=== PATIENT | male | born 1980 | race Caucasian/White ===

== ENCOUNTER → 2017-12-31 14:45 | Outpatient (CLI) | payer MEDICAID, SELFPAY ==
--- NOTE | 2017-12-31 15:30 | RAD_ITS ---
STUDY: X-RAY CHEST REASON FOR EXAM: Male, 37 years old. Chest pain TECHNIQUE: Frontal and lateral views of the chest COMPARISON: None. FINDINGS: The lungs are clear. There are no pleural effusions. There is no pneumothorax. The heart is normal in size. The visualized osseous structures are within normal limits. RAD/Chest PA and Lateral IMPRESSION: No acute thoracic pathology. Electronically Signed: Tao Leiva, at 16:08 EDT Tel , Service support ,
[2017-12-31 16:04] LABS: Absolute Lymphocyte Count 0.88 X10^3/ul (0.83-4.51); Absolute Neutrophil Count 1.5 X10^3/uL (2.0-7.7); Basophil# 0.01 X10^3/uL; Basophil% 0.4 % (0-1); Eosinophil# 0.31 X10^3/uL; Eosinophils% 11.2 % (0-5); Hematocrit 36.8 % (40-54); Hemoglobin 11.6 g/dl (13.0-16.5); Lymphocyte # 0.88 X10^3/ul (4.0); Lymphocyte % 31.9 % (19-41); Mean Corp Hgb Conc 31.5 g/gl (32-36); Mean Corpuscular Volume 88.7 fL (80-94); Mean Platelet Vol. 10.7 fl (6.2-12.0); Monocyte# 0.09 X10^3/uL; Monocyte% 3.3 % (0-10); Neutrophil # 1.47 X10^3/uL (2.7-7.7); Neutrophil % 53.2 % (47-70); Platelet Count 158 K/mm3 (150-450); RBC Distribution Width CV 13.1 % (11.6-14.6); Red Blood Count 4.15 M/mm3 (4.6-6.2); White Blood Count 2.8 K/mm3 (4.4-11.0)
[2017-12-31 16:06] LABS: POSITIVE COUNT NO; POSITIVE DIFFERENTIAL NO; POSITIVE MORPHOLOGY NO
[2017-12-31 16:43] LABS: ALB/GLOB Ratio 0.8 RATIO (0.9-2.4); AST(SGOT) 14 U/L (15-37); Alanine Aminotransfer ALT/SGPT 20 U/L (16-61); Alkaline Phosphatase 111 U/L (45-117); Anion Gap 6 (5-15); BUN 17 mg/dL (7-18); BUN/Creat Ratio 17.4 RATIO (10-20); Calcium,Total 9.2 mg/dL (8.5-10.1); Chloride 104 mmol/L (98-107); Creatinine, Serum 0.98 mg/dL (0.70-1.30); EST Glomerular Filtration Rate 92 mL/min (>60); Est Glom Filt Rate - Afr Amer 111 mL/min (>60); Globulin 4.9 g/dL (2.2-4.2); Glucose 88 mg/dL (74-106); Potassium 4.2 mmol/L (3.5-5.1); Protein, Total 8.9 g/dL (6.4-8.2); Sodium Level 140 mmol/L (136-145)
[2018-01-03 13:18] LABS: Toxoplasma Gondii IgM < 3.0 AU/mL (0.0-7.9)
[2018-01-03 20:08] LABS: Absolute CD4 Helper 54 /uL (359-1519); Basophils (Absolute) 0 x10E3/uL (0.0-0.2); Eosinophils 11 % (Not Estab.); Eosinophils (Absolute) 0.3 x10E3/uL (0.0-0.4); HCV Quant. RNA PCR HCV Not Detected IU/mL (.); HEPATITIS B SURFACE AG Negative (Negative); Hematocrit 36.8 % (37.5-51.0); Hemoglobin 11.6 g/dL (13.0-17.7); Hepatitis A IgM Antibody Negative (Negative); Hepatitis B Core AB IgM Negative (Negative); Immature Granulocytes 0 % (Not Estab.); Immature Granulocytes Absolute 0 x10E3/uL (0.0-0.1); Lymphs 24 % (Not Estab.); Lymphs (Absolute) 0.7 x10E3/uL (0.7-3.1); MCH 28.5 pg (26.6-33.0); MCHC 31.5 g/dL (31.5-35.7); MCV 90 fL (79-97); Monocytes 11 % (Not Estab.); Monocytes (Absolute) 0.3 x10E3/uL (0.1-0.9); Neutrophils 53 % (Not Estab.); Neutrophils (Absolute) 1.6 x10E3/uL (1.4-7.0); Percent % CD4 Pos. Lymph. 7.7 % (30.8-58.5); Platelets 187 x10E3/uL (150-379); RBC Count 4.07 x10E6/uL (4.14-5.80); RDW 13.4 % (12.3-15.4)
[2018-01-04 08:42] LABS: CMV Antibody IgG > 10.00 U/mL (0.00-0.59); Hep C Antibodies <0.1 s/co ratio (0.0-0.9); Toxoplasma Gondii IgG < 3.0 IU/mL (0.0-7.1)
[2018-01-07 05:43] LABS: Rapid Plasmin Reagin (RPR) NONREACTIVE (NONREACTIVE)
== END ==
PROVIDERS: Referring Provider Family Medicine; Visit Provider Family Medicine
DX: B20 Human immunodeficiency virus [HIV] disease (principal)
CPT/HCPCS: 71046; 80053; 80074; 85025; 86361; 86592; 86644; 86777; 86778; 87522

== ENCOUNTER → 2018-03-07 16:02 | Outpatient (CLI) | payer MEDICAID, SELFPAY ==
[2018-03-09 14:01] LABS: Absolute CD4 Helper 277 /uL (359-1519); Basophils (Absolute) 0 x10E3/uL (0.0-0.2); Eosinophils 7 % (Not Estab.); Eosinophils (Absolute) 0.5 x10E3/uL (0.0-0.4); Hematocrit 35.7 % (37.5-51.0); Hemoglobin 11.2 g/dL (13.0-17.7); Immature Granulocytes 0 % (Not Estab.); Lymphs 40 % (Not Estab.); Lymphs (Absolute) 2.8 x10E3/uL (0.7-3.1); MCH 28.8 pg (26.6-33.0); MCHC 31.4 g/dL (31.5-35.7); MCV 92 fL (79-97); Monocytes 9 % (Not Estab.); Monocytes (Absolute) 0.6 x10E3/uL (0.1-0.9); Neutrophils 44 % (Not Estab.); Percent % CD4 Pos. Lymph. 9.9 % (30.8-58.5); Platelets 298 x10E3/uL (150-379); RBC Count 3.89 x10E6/uL (4.14-5.80); RDW 16.4 % (12.3-15.4); WBC Count 6.9 x10E3/uL (3.4-10.8)
[2018-03-09 15:37] LABS: Immature Granulocytes Absolute 0 x10E3/uL (0.0-0.1)
[2018-03-11 12:40] LABS: HIV-1 RNA by PCR, Quant. 140 copies/mL (.); LOG10 HIV-1 RNA 2.146 (.)
--- OUTSIDE RECORDS SUMMARY | 2018-04-24 01:01 | XMS RPT_ITS ---
:1980 Author Organization [facility] Care Team Providers Name Role Phone PROVIDER, UNKNOWN Admitting Unavailable PROVIDER, UNKNOWN Attending Unavailable KYUNG SIEGEL Primary Care Unavailable PROVIDER, UNKNOWN Admitting Unavailable PROVIDER, UNKNOWN Attending Unavailable PATIENT, SELF Referring Unavailable YAMAHSATURNINO, ATSUKO Primary Care Unavailable PROVIDER, UNKNOWN Admitting Unavailable PROVIDER, UNKNOWN Attending Unavailable CHIQUITA, ATSUKO Referring Unavailable YAMAHSATURNINO, ATSUKO Primary Care Unavailable NIRANJAN MAHAJAN Attending Unavailable NIRANJAN MAHAJAN Referring Unavailable CLINIC, [facility] Primary Care Unavailable Tiffanie Toro Attending Unavailable Tiffanie Toro Referring Unavailable CLINIC, [facility] Primary Care Unavailable PROBLEMS PROBLEMS DATE TYPE CONDITION / CODE ATTENDING STATUS SOURCE 01/27/2018 Unknown B20 - Human [place], Active Helen immunodeficiency virus [facility] [HIV] disease / Hospital B20(ICD-10) Repository PROCEDURES PROCEDURES DATE CODE DESCRIPTION STATUS SOURCE 04/13/2018 AP111(C4) SPECIMEN [facility] DERM [facility] 04/13/2018 77651(C4) PUNCH BIOPSY SKIN [facility] 03/25/2018 08479(C4) GC/CHLAMYDIA [facility] 03/25/2018 56455(C4) GC/CHLAMYDIA [facility] 03/25/2018 26318(C4) GC/CHLAMYDIA Completed [facility] AMPLIFICATION System Repository 03/25/2018 86729(C4) INFLUENZA, INJECTABLE, Completed [facility] QUADRIVALENT, System Repository PRESERVATIVE FREE, 6+ MONTHS OR OLDER, 0.5 ML 03/25/2018 AYQ697(C4) DERMATOLOGY SERVICE Completed [facility] REQUEST System Repository 03/25/2018 WEN658(C4) ONCOLOGY MED SERVICE Completed [facility] REQUEST System Repository 03/25/2018 AP117(C4) CYTOLOGY GI Completed [facility] Repository 03/15/2018 JWD150(C4) INFECTIOUS DISEASE Completed [facility] SERVICE REQUEST System Repository RESULTS RESULTS Observed: 03/25/2018 Status: F Source: THE GC/CHLAMYDIA 3:29 PM [facility] AMPLIFICATION REPOSITORY GC AMPLIFICATION: Negative CHLAMYDIA AMPLIFICATION: Negative Performed By: #### GCA #### [facility] [address] [place], [place] [address] Observed: 03/25/2018 Status: F Source: THE GC/CHLAMYDIA 3:29 PM [facility] AMPLIFICATION REPOSITORY GC AMPLIFICATION: Negative CHLAMYDIA AMPLIFICATION: Negative Performed By: #### GCA #### [facility] [address] [place], [place] CD4, T LYMPH HELPER Collected: 03/07/2018 Status: F Source: HELEN COUNT 4:07 PM [facility] REPOSITORY TYPE CODE TESTS RESULT OUT OF REFERENCE UNITS RANGE LAB L3890.0800 3.4-10.8 x10E3/uL WBC Normal Count 6.9 LAB L3890.0900 4.14-5.80 x10E6/uL Low RBC Count 3.89 LAB L3890.1000 13.0-17.7 g/dL Low Hemoglobin 11.2 LAB L3890.1100 37.5-51.0 % Low Hematocrit 35.7 LAB L3890.1200 79-97 fL MCV 92 Normal LAB L3890.1300 26.6-33.0 pg MCH Normal 28.8 LAB L3890.1400 31.5-35.7 g/dL Low MCHC 31.4 LAB L3890.1450 12.3-15.4 % RDW High 16.4 LAB L3890.1500 150-379 x10E3/uL Normal Platelets 298 LAB L3890.1600 Not Estab. % 44 Normal Neutrophils LAB L3890.1700 Not Estab. % Lymphs 40 Normal LAB L3890.1800 Not Estab. % 9 Normal Monocytes LAB L3890.1900 Not Estab. % 7 Normal Eosinophils LAB L3890.2000 Not Estab. % 0 Normal Basophils LAB L3890.2100 1.4-7.0 x10E3/uL Neutr Normal Absolute 3.0 LAB L3890.2200 0.7-3.1 x10E3/uL Lymphs Normal Absolute 2.8 LAB L3890.2300 0.1-0.9 x10E3/uL Monos Normal Absolute 0.6 LAB L3890.2400 0.0-0.4 x10E3/uL Eos High Absolute 0.5 LAB L3890.2500 0.0-0.2 x10E3/uL Basos 0 Normal Absolute LAB L3890.2505 . Immature Normal CellS Test not performed LAB L3890.2510 Not Estab. % Immature 0 Normal Grans LAB L3890.2515 0.0-0.1 x10E3/uL Imm 0 Normal Grans Abs Result Comment: Performed at: [place] [id number] Hunting Sales Leader: Grayson Barboza PhD, Phone: [phone] LAB L3890.9126 . Normal Test not NRBC Count performed LAB L3890.2525 . Normal Test not HEME COMMENT performed LAB L3890.2530 359-1519 /uL Low 277 ABS CD4 HELPER LAB L3890.2575 30.8-58. % Low 5 % 9.9 CD4 POS.LYMPH Performed By: #### L3890.0200 #### [facility] (refer to report for specific site) refer to report for address and phone number HIV VIRAL LOAD Collected: 03/07/2018 Status: F Source: HELEN QUANT 4:07 PM [facility] REPOSITORY TYPE CODE TESTS RESULT OUT OF RANGE REFERENCE UNITS LAB L3890.4100 . copies/mL Normal HIV-1 140 RNA,QUANT Result Comment: The reportable range for this assay is 20 to 10,000,000 copies HIV-1 RNA/mL. LAB L3890.4200 . Normal log10 HIV-1 2.146 RNA Result Comment: Result Units: [id number]/mL Performed at: [place], [place] [id number] Hunting Sales Leader: Viviana Montero MD, Phone: [phone] Performed By: #### L3890.4000 #### [facility] (refer to report for specific site) refer to report for address and phone number CD4 ABSOLUTE COUNT Collected: 02/15/2018 Status: F Source: TAMPA 9:54 AM CLINIC REFERENCE REPOSITORY TYPE CODE TESTS RESULT OUT OF REFERENCE UNITS RANGE LAB XCD3P(LOINC 60-89 % ) CD3+ T Cell % 72 LAB XCD3N(LOINC 958-2388 Cells/uL ) CD3+ T Cell 1620 No. LAB XCD4P(LOINC 34-61 % ) Low CD4+CD3+ T 12 Cell % LAB XCD4N(LOINC 533-1674 Cells/uL ) Low CD4+CD3+ T 271 Cell No. LAB XCOMNT(LOIN C) CD4 Comment Result Comment: Clinical interpretation of lymphocyte subsets must be made with caution. The following number of cluster designated antibodies were used for the definition of the above reported populations: CD3 and CD4. (CD45 used for gating.) This test was developed and its performance characteristics determined by [facility] ([facility]). It has not been cleared or approved by the FDA. [facility] is regulated under CLIA as qualified to perform high-complexity testing. This test is used for clinical purposes. It should not be regarded as investigational or for research. Relative and absolute values may be profoundly affected by immunosuppressive or The following number of cluster designated antibodies were used for the definition of the above reported populations: CD3 and CD4. (CD45 used for gating.) This test was developed and its performance characteristics determined by [facility] ([facility]). It has not been cleared or approved by the FDA. -[facility] is regulated under CLIA as qualified to perform high-complexity testing. This test is used for clinical purposes. It should not be regarded as investigational or for research. cytotoxic therapy, and be abnormal in a wide variety of infectious, The following number of cluster designated antibodies were used for the definition of the above reported populations: CD3 and CD4. (CD45 used for gating.) This test was developed and its performance characteristics determined by [facility] [place] ([facility]). It has not been cleared or approved by the FDA. [facility] is regulated under CLIA as qualified to perform high-complexity testing. This test is used for clinical purposes. It should not be regarded as investigational or for research. inflammatory, autoimmune and neoplastic disorders. The following number of cluster designated antibodies were used for the definition of the above reported populations: CD3 and CD4. (CD45 used for gating.) This test was developed and its performance characteristics determined by [facility] [place] ([facility]). It has not been cleared or approved by the FDA. -[facility] is regulated under CLIA as qualified to perform high-complexity testing. This test is used for clinical purposes. It should not be regarded as investigational or for research. Performed By: #### CD4ABS #### [facility] Flow Lab [address] [place], [place] [id number] HIV QUANT RNA BY Collected: 02/15/2018 Status: F Source: TAMPA PCR 9:54 AM CLINIC REFERENCE REPOSITORY TYPE CODE TESTS RESULT OUT OF RANGE REFERENCE UNITS LAB HIVRNA(LOIN copies/mL C) HIV Quant 325 RNA by PCR Performed By: #### HIVRNA #### [facility] Microbiology [address] [place] [address] HIV GENOTYPING Collected: 01/04/2018 Status: F Source: TAMPA 9:54 AM CLINIC REFERENCE REPOSITORY TYPE CODE TESTS RESULT OUT OF REFERENCE UNITS RANGE LAB HIVGE(LOIN C) HIV Genotyping Result Comment: Duplicate request Account Credited REFERTO [id number] LAB HVGEER(LOINC) EER HIV-1 Genotyping Result Comment: Duplicate request Account Credited REFERTO [id number] LAB HIVDIS(LOINC) HIV Disclaimer Result Comment: HIV Information: [place] Rev. Code 3701.243(E): This information has been disclosed to you from confidential records protected from disclosure by state law. You shall make no further disclosure of this information without the specific, written, and informed release of the individual to whom it pertains or as otherwise permitted by state law. A general authorization for the release of medical or other information is not sufficient for the purpose of the release of HIV test results or diagnoses. Performed By: #### HIVGEN, HIVRNA #### [facility] Routine Lab [address] [place], [place] [id number] HIV QUANT RNA BY Collected: 01/04/2018 Status: F Source: TAMPA PCR 9:54 AM CLINIC REFERENCE REPOSITORY TYPE CODE TESTS RESULT OUT OF RANGE REFERENCE UNITS LAB HIVRNA(LOIN C) HIV Quant RNA by PCR Result Comment: Duplicate request Account Credited REFERTO [id number] Performed By: #### HIVGEN, HIVRNA #### [facility] Routine Lab [address] [place], [place] [address] CHEST PA AND LATERAL Observed: 12/31/2017 Status: F Source: HELEN 3:24 PM [facility] REPOSITORY [facility] Imaging Services [address] [place] [address] Chest PA and Lateral MR#: [id number] Acct: [id number] Name: INESSA DELA CRUZ Rep #: [id number] : 1980 M 37 From: Tao Leiva MD PCP: SHANNEN GARCIA [facility] Status: REG CLI Study: Chest PA and Lateral Date of Exam: 12/31/17 Exam# [id number] Ordering Dr: Tiffanie Toro MD STUDY: X-RAY CHEST REASON FOR EXAM: Male, 37 years old. Chest pain TECHNIQUE: Frontal and lateral views of the chest COMPARISON: None. FINDINGS: The lungs are clear. There are no pleural effusions. There is no pneumothorax. The heart is normal in size. The visualized osseous structures are within normal limits. RAD/Chest PA and Lateral IMPRESSION: No acute thoracic pathology. Electronically Signed: Tao Leiva, at 16:08 EDT Tel , Service support , CC: Tiffanie Toro MD; SHANNEN GARCIA [facility] Sanitary Inspector: Signed CBC W/DIFF, AUTOMATED Collected: 12/31/2017 Status: F Source: HELEN 2:57 PM [facility] REPOSITORY TYPE CODE TESTS RESULT OUT OF RANGE REFERENCE UNITS LAB L100.1000 4.4-11.0 K/mm3 Low WBC 2.8 LAB L100.1200 4.6-6.2 M/mm3 Low RBC 4.15 LAB L100.1300 13.0-16.5 g/dl Low HGB 11.6 LAB L100.1400 40-54 % Low HCT 36.8 LAB L100.1500 80-94 fL Normal MCV 88.7 LAB L100.1600 27.0-32.0 pg Normal MCH 28.0 LAB L100.1700 32-36 g/gl Low MCHC 31.5 LAB L100.1810 11.6-14.6 % Normal RDW CV 13.1 LAB L100.1820 35.1-43.9 fl Normal RDW SD 42.0 LAB L100.1900 150-450 K/mm3 Normal PLT 158 LAB L100.2000 6.2-12.0 fl Normal MPV 10.7 LAB L100.2100 47-70 % Normal NEUT% 53.2 LAB L100.2200 19-41 % Normal LY% 31.9 LAB L100.2300 0-10 % Normal MONO% 3.3 LAB L100.2400 0-5 % High EO% 11.2 LAB L100.2500 0-1 % Normal BASO% 0.4 LAB L100.2550 0.0-0.9 % Normal IM GRAN % 0.000 Result Comment: IG% - Immature Granulocytes (promyelocytes, myelocytes and metamyelocytes) > 1% indicates that a LEFT SHIFT is Present. LAB L100.2620 2.0-7.7 X10 3/uL Low Absolute Neut 1.5 LAB L100.2720 0.83-4.51 X10 3/ul Normal Absolute Lymph 0.88 Performed By: #### L100.0100 #### [facility] [place], [address] COMPREHENSIVE METABOLIC Collected: 12/31/2017 Status: F Source: HELEN PROFIL 2:57 PM [facility] REPOSITORY TYPE CODE TESTS RESULT OUT OF RANGE REFERENCE UNITS LAB L501.0100 74-106 mg/dL Normal GLU 88 Result Comment: Please note revised GLUCOSE reference range effective 2017. LAB L501.1000 7-18 mg/dL Normal BUN 17 LAB L501.1100 0.70-1.30 mg/dL Normal CREAT,SERUM 0.98 Result Comment: The validity of the calculated GFR AND GFRAA in patients over 70 years has not been determined. Clinical correlation is essential. LAB L501.1110 >60 mL/min Normal EST GFR 92 Result Comment: Non- GFR Calc LAB L501.1115 >60 mL/min Normal EST GFR - AA 111 Result Comment: GFR Calc LAB L501.1300 10-20 RATIO Normal BUN/CRE 17.4 LAB L501.1500 6.4-8.2 g/dL High T PROT 8.9 LAB L501.1800 3.2-5.0 g/dL Normal ALB 4.0 LAB L501.1950 2.2-4.2 g/dL High GLOB 4.9 LAB L501.2000 0.9-2.4 RATIO Low A/G 0.8 LAB L501.2200 8.5-10.1 mg/dL CA Normal 9.2 LAB L501.4100 15-37 U/L Low AST 14 LAB L501.4305 45-117 U/L Normal ALK P 111 LAB L501.4405 16-61 U/L Normal ALT 20 LAB L501.4600 0.20-1.00 mg/dL T Normal BILI 0.40 LAB L501.5300 136-145 mmol/L NA Normal 140 LAB L501.5600 3.5-5.1 mmol/L K Normal 4.2 LAB L501.5900 98-107 mmol/L CL Normal 104 LAB L501.6100 21.0-32.0 mmol/L Normal CO2 30.0 LAB L501.6200 5-15 Normal GAP 6 Performed By: #### L500.4050 #### [facility] [address] [place], [address] TOXOPLASMA GONDII IGM Collected: 12/31/2017 Status: F Source: HELEN 2:57 PM [facility] REPOSITORY TYPE CODE TESTS RESULT OUT OF RANGE REFERENCE UNITS LAB L3400.2000 0.0-7.9 AU/mL Normal TOXOP IgM < 3.0 Result Comment: Negative <8.0 Equivocal 8.0 - 9.9 Positive >9.9 LAB L3400.3955 . Normal Tox. gondii Comment Com Result Comment: It is presumed the patient has not been infected with and is not undergoing an acute infection with Toxoplasma. If symptoms persist, submit a new specimen after three weeks. Performed at: [facility] [address] [id number] Hunting Sales Leader: Grayson Barboza PhD, Phone: [phone] Performed By: #### L3400.1980 #### [facility] (refer to report for specific site) refer to report for address and phone number HEPATITIS PANEL ACUTE Collected: 12/31/2017 Status: F Source: HELEN 2:57 PM [facility] REPOSITORY TYPE CODE TESTS RESULT OUT OF RANGE REFERENCE UNITS LAB L3100.0200 Negative Normal HEP A Negative IgM 6734 LAB L3100.0400 Negative Normal HB Negative SURF AG LAB L3100.0440 Negative Normal HB Negative CORE [id number] LAB L3100.0650 0.0-0.9 s/co ratio Normal HEP C <0.1 AB Result Comment: Negative: < 0.8 Indeterminate: 0.8 - 0.9 Positive: > 0.9 The CDC recommends that a positive HCV antibody result be followed up with a HCV Nucleic Acid Amplification test (673426). Performed By: #### L3000.0375, L3400.1490, L3400.1990, L3890.0200, L7000.7000 #### [facility] (refer to report for specific site) refer to report for address and phone number CMV ANTIBODY IGG Collected: 12/31/2017 Status: F Source: HELEN 2:57 PM [facility] REPOSITORY TYPE CODE TESTS RESULT OUT OF RANGE REFERENCE UNITS LAB L3400.1490 0.00-0.59 U/mL High CMV AB > 10.00 IgG Result Comment: Negative <0.60 Equivocal 0.60 - 0.69 Positive >0.69 Performed at: [facility] [address] [id number] Hunting Sales Leader: Grayson Barboza PhD, Phone: [phone] Performed at: [facility] [address] [id number] Hunting Sales Leader: Francis Bobby MD, Phone: [phone] Performed By: #### L3000.0375, L3400.1490, L3400.1990, L3890.0200, L7000.7000 #### [facility] (refer to report for specific site) refer to report for address and phone number TOXOPLASMA GONDII IGG Collected: 12/31/2017 Status: F Source: HELEN 2:57 PM [facility] REPOSITORY TYPE CODE TESTS RESULT OUT OF RANGE REFERENCE UNITS LAB L3400.3900 0.0-7.1 IU/mL Normal TOXOPIgG < 3.0 Result Comment: Negative <7.2 Equivocal 7.2 - 8.7 Positive >8.7 Performed By: #### L3000.0375, L3400.1490, L3400.1990, L3890.0200, L7000.7000 #### [facility] (refer to report for specific site) refer to report for address and phone number CD4, T LYMPH HELPER Collected: 12/31/2017 Status: F Source: HELEN COUNT 2:57 PM [facility] REPOSITORY TYPE CODE TESTS RESULT OUT OF REFERENCE UNITS RANGE LAB L3890.0800 3.4-10.8 x10E3/uL Low WBC Count 3.0 LAB L3890.0900 4.14-5.80 x10E6/uL Low RBC Count 4.07 LAB L3890.1000 13.0-17.7 g/dL Low Hemoglobin 11.6 LAB L3890.1100 37.5-51.0 % Low Hematocrit 36.8 LAB L3890.1200 79-97 fL MCV 90 Normal LAB L3890.1300 26.6-33.0 pg MCH Normal 28.5 LAB L3890.1400 31.5-35.7 g/dL MCHC Normal 31.5 LAB L3890.1450 12.3-15.4 % RDW Normal 13.4 LAB L3890.1500 150-379 x10E3/uL Normal Platelets 187 LAB L3890.1600 Not Estab. % 53 Normal Neutrophils LAB L3890.1700 Not Estab. % Lymphs 24 Normal LAB L3890.1800 Not Estab. % 11 Normal Monocytes LAB L3890.1900 Not Estab. % 11 Normal Eosinophils LAB L3890.2000 Not Estab. % 1 Normal Basophils LAB L3890.2100 1.4-7.0 x10E3/uL Neutr Normal Absolute 1.6 LAB L3890.2200 0.7-3.1 x10E3/uL Lymphs Normal Absolute 0.7 LAB L3890.2300 0.1-0.9 x10E3/uL Monos Normal Absolute 0.3 LAB L3890.2400 0.0-0.4 x10E3/uL Eos Normal Absolute 0.3 LAB L3890.2500 0.0-0.2 x10E3/uL Basos 0 Normal Absolute LAB L3890.2505 . Immature Normal CellS Test not performed LAB L3890.2510 Not Estab. % Immature 0 Normal Grans LAB L3890.2515 0.0-0.1 x10E3/uL Imm 0 Normal Grans Abs LAB L3890.2520 . NRBC Normal Count Test not performed LAB L3890.2525 . HEME Normal COMMENT Test not performed LAB L3890.2530 359-1519 /uL Low ABS CD4 54 HELPER LAB L3890.2575 30.8-58.5 % Low % CD4 POS.LYMPH 7.7 Performed By: #### L3000.0375, L3400.1490, L3400.1989, L3890.0200, L7000.7000 #### [facility] (refer to report for specific site) refer to report for address and phone number HEPATITIS C,RNA PCR Collected: 12/31/2017 Status: F Source: HELEN VIRAL LOAD 2:57 PM [facility] REPOSITORY TYPE CODE TESTS RESULT OUT OF RANGE REFERENCE UNITS LAB L7000.7100 . IU/mL HCV Normal HCV Not Detected QT PCR LAB L7000.7350 . Test Normal HCV not performed log 10 LAB L7000.7500 . Normal TEST Comment INFO: Result Comment: The quantitative range of this assay is 15 IU/mL to 100 million IU/mL. Performed By: #### L3000.0375, L3400.1490, L3400.1990, L3890.0200, L7000.7000 #### [facility] (refer to report for specific site) refer to report for address and phone number RAPID PLASMIN REAGIN Collected: 12/31/2017 Status: F Source: HELEN (RPR) 2:57 PM [facility] REPOSITORY TYPE CODE TESTS RESULT OUT OF REFERENCE UNITS RANGE LAB L700.5000 NONREACTIVE NONREACTIVE Normal RPR Performed By: #### L700.5000 #### [facility] [address] [place], [address] ALLERGIES ALLERGIES DATE TYPE / CODE NAME / CODE REACTION SEVERITY SOURCE 02/17/2010 Drug PENICILLINS [facility] Class/92574 System Repository 1003(SNOMED CT) 02/17/2010 DRUG/063551 TETRACYCLINE HCL RASH [facility] 003(SNOMED System Repository CT) ENCOUNTERS ENCOUNTERS ADMIT/DISCHARGE ACCOUNT NUMBER ADMITTING ENCOUNTER LOCATION SOURCE CLASS 04/13/2018 [id number] [facility] Repository 03/25/2018/03/25/20 [id number] Unknown [facility]ulatory [facility] Repository 03/15/2018/03/15/20 [id number] Unknown [facility] Repository 03/07/2018 [id number] [facility] ding:LAB Repository 12/31/2017 [id number] [facility] ding:RAD.FUT Repository URE PAYERS PAYERS ENCOUNTER GUARANTOR PAYER SUBSCRIBER SOURCE 04/13/2018 [facility]SA [facility] ST[facility]FFORD[facility]: System Repository [id number] MEDICAID HMOPolicy [id number] RAINBOW HIGH Number: 02 [facility], [id number] [place], [place] [address]Xbt: Date:2018-03-01 [place] [id number] () 03/25/2018 INESSA Primary INESSA [facility] STAFFORDDOB: [facility] STAFFORDDOB: System Repository [id number] MEDICAID [place]icy [id number] RAINBOW HIGH Number: 02 RAINBOW [facility], [id number] [place], [place] [address]Dzg: Date:2018-03-01 [place] [address] (HP) 03/15/2018 INESSA Primary INESSA [facility] STAFFORDDOB: Insurance:CARESOURCE STAFFORDDOB: System Repository [id number] MEDICAID [facility] [id number] RAINBOW HIGH Number: 02 [facility], [id number] [place], [place] [address]Qrs: Date:2018-03-01 [place] [address] (HP) 03/07/2018 INESSA D Primary INESSA D [facility] [id number] Insurance:CARESOURCEP STAFFORDDOB: [facility] Number: [id number] [place], [place] [id number] [id number]: (216) Date:2018-03-07P O [phone] () [address]ATTN: [place] [address]CC: 03/07/2018 Secondary NOT GIVENUNK [facility] Insurance:SELF PAY Hospital INSURANCEPolicy Repository Number: Effective Date:2018-03-07 12/31/2017 INESSA Primary INESSA [facility] [id number] Insurance:[place] JOYA STAFFORDDOB: [facility] [id number] [place], [place] Number: [id number]: 216 [id number] [phone] (HP) Date:[id number] [address], [place] [address]GP: 12/31/2017 Secondary NOT GIVENUNK [facility] Insurance:SELF PAY Hospital INSURANCEPolicy Repository Number: Effective Date:2017-12-28
== END ==
DX: B20 Human immunodeficiency virus [HIV] disease (principal)
CPT/HCPCS: 36415; 86361; 87536